=== PATIENT | male | born 1955 | race Caucasian/White ===

== ENCOUNTER 2016-09-04 05:12 | Inpatient (IN) | payer BC ==
[2016-08-22 11:33] VITALS: BMI 26.0
--- NOTE | 2016-08-22 12:08 | PAT Medication Instructions ---
Service Date Aug 22, 2016. Current Home Medication List Glyburide-Metformin (Glyburide/Metformin Hcl), 2 TAB PO BID Lisinopril (Zestril), 20 MG PO QAM Naproxen (Naprosyn), 500 MG PO BID PRN for PRN Medication Instructions For Your Scheduled Surgery - Check with surgeon for instructions: Naproxen (Naprosyn), 500 MG PO BID PRN for PRN - Hold the following medications 48 hours prior to surgery: Glyburide-Metformin (Glyburide/Metformin Hcl), 2 TAB PO BID - Hold the following medications the morning of surgery: Lisinopril (Zestril), 20 MG PO QAM If you have any questions please call us at [phone] (Eun Damon PA-C) or [phone] or [phone]
--- NOTE | 2016-08-22 13:07 | DIAGNOSTIC IMAGING REPORT ---
TWO VIEW CHEST CLINICAL HISTORY: Preoperative examination. FINDINGS: PA and lateral chest radiographs are obtained. No prior studies are available for comparison at the time of dictation. The cardiomediastinal silhouette is unremarkable. There is mild elevation of the right hemidiaphragm. The lungs and pleural spaces are clear. There is no pneumothorax. The bony thorax appears intact. IMPRESSION: No active disease in the chest. Electronically signed by: Geoffrey Dixon M.D. 08/22/2016 1:06 PM Dictated Date/Time: 08/22/2016 1:05 PM
[2016-08-22 13:15] LABS: BASO % 0.4 %; BASO ABS # 0.03 K/uL (0-0.2); COMPLETE YES; EOS % 1.5 %; HEMATOCRIT 42.5 % (42-52); IG% 0.5 %; LYMPH % 23.3 %; LYMPH ABS # 1.73 K/uL (1.2-3.4); MEAN CELL VOLUME 88.5 fL (80-100); MEAN CORPUSCULAR HEMOGLOBIN 31.7 pg (25-34); MEAN CORPUSCULAR HGB CONC 35.8 g/dl (32-36); MEAN PLATELET VOLUME 11.8 fL (7.4-10.4); MONO % 7.4 %; NEUT % 66.9 %; PLATELET COUNT 215 K/uL (130-400); WHITE BLOOD COUNT 7.43 K/uL (4.8-10.8)
[2016-08-22 13:27] LABS: URINE APPEARANCE CLEAR (CLEAR); URINE BILIRUBIN NEG (NEG); URINE COLOR YELLOW; URINE NITRITE NEG (NEG); URINE SPECIFIC GRAVITY 1.012 (1.000-1.030); UROBILINOGEN NEG (NEG)
[2016-08-22 13:36] LABS: MANUAL MICROSCOPIC REQUIRED? NO; REVIEW REQ? NO
[2016-08-22 13:37] LABS: BUN/CREATININE RATIO 16.8 (10-20); CALCIUM 9.9 mg/dl (8.5-10.1); CREATININE 1.2 mg/dl (0.60-1.40); POTASSIUM 5.1 mmol/L (3.5-5.1)
--- NOTE | 2016-08-31 14:38 | HISTORY & PHYSICAL EXAMINATION ---
DATE OF ADMISSION: 09/04/2016 HISTORY OF PRESENT ILLNESS: The patient presents to our office with a complaint of ongoing lower back pain. He has had a decline and worsening of symptoms in February 2016. His deer was in front of his home when he went to move it and as he was dragging it across the field he slipped and fell landing on his tail bone. He has noticed decline ever since. He has pain down both legs, right significantly worse than left since this point in time. The symptoms involve the buttock, lateral thigh, posterior calves. Activities such as twisting, sitting on a hard surface, leaning on a counter, walking, standing or looking upwards towards the ceiling exacerbate his pain. He is most comfortable lying flat. He does note his knees are buckling secondary to pain. He denies bowel or bladder dysfunction. He has trialed progressive care nurse with temporary relief. He has received an epidural injection by Dr. Cardona in April which provided short term relief. A second injection in May unfortunately did not provide relief. He has taken tramadol, Zanaflex and naproxen for pain control. PAST MEDICAL HISTORY: Significant for type 2 diabetes, hypertension, and hemochromatosis. PAST SURGICAL HISTORY: Significant for left and right cataract repair, right knee meniscectomy, umbilical hernia repair. ALLERGIES: INCLUDE CAT SCAN DYE CAUSES RASH. MEDICATIONS: Glyburide/metformin HCL 2.5/500 twice a day, lisinopril 20 mg a day, naproxen 500 mg twice a day, tramadol 50 mg t.i.d. p.r.n. and Zanaflex 4 mg t.i.d. p.r.n. SOCIAL HISTORY: He is . Occasionally uses alcohol. Tobacco, he denies. 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 FAMILY HISTORY: For arthritis, cardiovascular disease, cancer, diabetes, and hypertension. REVIEW OF SYSTEMS: Significant for weakness, weight loss, difficulty walking, hoarseness, muscle weakness, loss of appetite, constipation, anxiety, depression and insomnia. PHYSICAL EXAMINATION: GENERAL: He is 5 feet 8 inches and 175 pounds. HEENT: Speech appropriate. CARDIOPULMONARY: No gross abnormalities. ABDOMEN: Soft, nondistended. GENITOURINARY: Deferred. NEUROLOGIC: Cranial nerves II-XII grossly intact. MUSCULOSKELETAL: He ambulates with independent gait. Negative tension signs bilaterally. Strength is intact bilateral lower extremities. ASSESSMENT: Severe multilevel lumbar stenosis. PLAN: At this point in time, he has trialed conservative therapy. He may pursue surgical intervention. This would require lumbar decompression with instrumented fusion L3-4, L4-5. Risks, benefits, pros, cons, and alternatives were outlined in detail. The patient relates he would like to proceed with the above-mentioned surgical planning.
[~2016-09-04] VITALS: Ht 172.7 cm; Wt 78.2 kg
[2016-09-04] VITALS (9 sets, daily range): BP systolic 117–176; BP diastolic 66–92; PULSE 65–110; TEMP 36.5–37; O2SAT 96–100; BMI 26.0
[~2016-09-04 05:12] MED LIST: LISI-725 PO; NAPR-1169 PO; [UNRECOGNIZED DRUG - CODE] PO
[2016-09-04] MEDS ORDERED: LACTATED RINGER'S 1000ML 1,000 ML IV SCH (06:00)
[2016-09-04] MEDS ORDERED: CEFAZOLIN 1000MG/55 ML D5W IV SCH (06:00)
[2016-09-04] MEDS ORDERED: CEFAZOLIN 2000 MG/60 ML D5W IV SCH (06:00)
[2016-09-04] MEDS ORDERED: MIDAZOLAM HCL 1 MG/ML 2ML VIAL ONE (06:39)
[2016-09-04] MEDS ORDERED: FENTANYL CITRATE INJ 50 MCG/1 ML 2 ML VIAL ONE ×3 (06:39→08:43)
[2016-09-04] MEDS ORDERED: SODIUM CHLORIDE 0.9% PF 50 ML VIAL ONE (06:59)
[2016-09-04] MEDS ORDERED: BACITRACIN 50000 UNIT VIAL ONE (06:59)
[2016-09-04] MEDS ORDERED: BUPIVACAINE/EPINEPHRINE 0.5% MPF 1:200,000 30 ML VIAL ONE (06:59)
[2016-09-04] MEDS ORDERED: LACTATED RINGER'S 1000ML 1,000 ML IV PRN (07:03)
[2016-09-04] MEDS ORDERED: MoRPHine SULFATE 10 MG/ML CARP/VIAL IV PRN (07:15)
[2016-09-04] MEDS ORDERED: FENTANYL CITRATE INJ 50 MCG/1 ML 2 ML VIAL IV PRN (07:15)
[2016-09-04] MEDS ORDERED: ONDANSETRON INJ 2 MG/ML 2 ML VIAL IV PRN ×2 (07:15→09:45)
--- NOTE | 2016-09-04 07:26 | History & Physical Bridge Note ---
H&P Re-Evaluation Bridge Note: I have examined the patient, reviewed the History & Physical and in the interval since the performance of the History & Physical I have noted the following changes of clinical significance: No changes noted
[2016-09-04] MEDS ORDERED: NURSING VERBAL MED ORDER ONE (07:45)
[2016-09-04] MEDS ORDERED: HYDROmorphone INJ 2 MG/ML SYR/VIAL ONE ×2 (07:52→09:32)
[2016-09-04] MEDS ORDERED: SODIUM CHLORIDE 0.9% 1000ML 1,000 ML IV SCH (09:33)
--- NOTE | 2016-09-04 09:33 | [facility] Post Operative Brief Note ---
Immediate Operative Summary Operative Date Sep 04, 2016. Pre-Operative Diagnosis Severe multilevel lumbar stenosis Post-Operative Diagnosis Severe multilevel lumbar stenosis Procedure(s) Performed L3-L4, L4-L5 Lumbar Decompression/Laminectomy, Discectomy, Placement of Interbody Spacer L3-L4, L4-L5, Pedicle Screw Fixation, Application of Tonya, Application of Bone Morphogenetic Protein, and Posteriolateral Gutter Fusion Surgeon Dr. Shah Logging Crew Foreman Surgeon(s) Archana Simon PA-C Estimated Blood Loss 250mL Findings stenosis/spondy Specimens None per surgeon
[2016-09-04] MEDS ORDERED: PROPOFOL IV EMULSION 10 MG/ML 20 ML VIAL IV ONE (09:34)
[2016-09-04] MEDS ORDERED: ROCURONIUM BROMIDE 10 MG/ML 5 ML VIAL ONE (09:34)
[2016-09-04] MEDS ORDERED: ONDANSETRON INJ 2 MG/ML 2 ML VIAL ONE (09:34)
[2016-09-04] MEDS ORDERED: GLYCOPYRROLATE INJ 0.2 MG/ML VIAL ONE (09:34)
[2016-09-04] MEDS ORDERED: EpHEDrine SULFATE 50MG/5ML SYR ONE (09:34)
[2016-09-04] MEDS ORDERED: NEOSTIGMINE METHYLSULFATE 1 MG/ML 10ML VIAL ONE (09:34)
[2016-09-04] MEDS ORDERED: DEXAMETHASONE SOD INJ 4 MG/ML VIAL ONE (09:34)
[2016-09-04] MEDS ORDERED: PHENYLEPHRINE 100MCG/ML 5ML SYR ONE (09:34)
[2016-09-04] MEDS ORDERED: LIDOCAINE HCL 2% 2 ML VIAL (20MG/ML) ONE (09:34)
[2016-09-04] MEDS ORDERED: FLOSEAL HEMOSTATIC MATRIX 10ML TOP ONE (09:35)
--- NOTE | 2016-09-04 09:37 | DIAGNOSTIC IMAGING REPORT ---
INTRAOPERATIVE RADIOGRAPHS CLINICAL HISTORY: L3-L5 spinal fusion. Fluoroscopy time: 16 seconds. FINDINGS: 2 spot fluoroscopic views of the lumbar spine are presented. There is evidence of discectomy at L3-L4 and L4-L5 with laminectomy and posterior fusion from L3-L5 . Interpedicular screws are present at all levels. The orthopedic hardware appears intact. IMPRESSION: Intraoperative images from L3-L5 spinal fusion as above. Electronically signed by: Geoffrey Dixon M.D. 09/04/2016 9:35 AM Dictated Date/Time: 09/04/2016 9:34 AM
[2016-09-04] MEDS ORDERED: BISACODYL 10 MG SUPP PR PRN (09:45)
[2016-09-04] MEDS ORDERED: ACETAMINOPHEN IV 100 ML IV PRN (09:45)
[2016-09-04] MEDS ORDERED: NALOXONE HCL 0.4 MG/1 ML VIAL/CARP IV PRN ×2 (09:45)
[2016-09-04] MEDS ORDERED: hydrOXYzine HCL 25 MG TAB PO PRN (09:45)
[2016-09-04] MEDS ORDERED: ACETAMINOPHEN 500 MG TAB PO PRN (09:45)
[2016-09-04] MEDS ORDERED: ALUMINUM/MAGNESIUM SUSP 30 ML UDC PO PRN (09:45)
[2016-09-04] MEDS ORDERED: METOCLOPRAMIDE HCL INJ 5 MG/ML 2 ML VIAL IV PRN (09:45)
[2016-09-04] MEDS ORDERED: DO NOT ADMINISTER PNEUMOCOCCAL VACCINE PRN ×2 (09:45)
[2016-09-04] MEDS ORDERED: SOD PHOSPHATE/SOD BIPHOSPHATE ENEMA 132 ML BTL PR PRN (09:45)
[2016-09-04] MEDS ORDERED: FAMOTIDINE 20 MG TAB PO PRN (09:45)
[2016-09-04] MEDS ORDERED: DO NOT ADMINISTER FLU VACCINE PRN ×3 (09:45)
[2016-09-04] MEDS ORDERED: MAGNESIUM HYDROXIDE SUSP 30 ML UDC PO PRN (09:45)
[2016-09-04] MEDS ORDERED: LORAZEPAM INJ 0.5 MG in SYRINGE 0 ML IV PRN (09:45)
[2016-09-04] MEDS ORDERED: PROMETHAZINE HCL INJ 12.5 MG in SODIUM CHLORIDE 0.9% 50ML 50 ML IV PRN (09:45)
[2016-09-04] MEDS ORDERED: HYDROmorphone HCL 0.5MG/ML 50 ML CASSETTE ONE (09:50)
[2016-09-04] MEDS ORDERED: KETOROLAC TROMETHAMINE 30 MG/ML VIAL ONE (09:51)
[2016-09-04] MEDS ORDERED: PHARMACY GLYCEMIC MGMT CONSULT SCH (09:53)
[2016-09-04] MEDS ORDERED: DEXTROSE 50% 50 ML SYR IV PRN (10:15)
[2016-09-04] MEDS ORDERED: GLUCOSE 10 TABS/TUBE PO PRN (10:15)
[2016-09-04] MEDS ORDERED: GLUCAGON FOR INJ 1 MG VIAL SQ PRN (10:15)
[2016-09-04] MEDS ORDERED: GLUCOSE 40% GEL 15 GM TUBE PO PRN (10:15)
--- NOTE | 2016-09-04 10:34 | OPERATIVE REPORT ---
DATE OF OPERATION: 09/04/2016 PREOPERATIVE DIAGNOSES: Spinal stenosis, spondylolisthesis. POSTOPERATIVE DIAGNOSES: Same. PROCEDURES PERFORMED: 1. Lumbar decompression and medial facetectomy and foraminotomy L2-3, L3-4, L4-5. 2. Posterior spinal fusion L3-4, L4-5. 3. Placement of posterior segmental instrumentation using Orthros rods and screws, L3-4, L4-5. 4. Interbody fusion L3-4, L4-5. 5. Placement of PEEK cage 11 x 26 at L3-4 and 12 x 26 at L4-5. 6. Placement of locally harvested morcellized autograft in posterior gutters. 7. Placement of Infuse collagen sponge combined with Mastergraft in posterior gutters and Tonya bone graft in the interbody space. SURGEON: Dr. Sam Shah. EMPLOYEE TRAINING SPECIALIST: Archana Simon PA-C. Due to the complex nature of the procedure, the entire surgery was performed with the patient care nursing assistant of BOBBY Sesay. The dermatology physician assistant, under direct supervision, was involved in the actual performance of all aspects of the surgical procedure including hemostasis, tissue retraction and incision, instrument management, patient positioning, and wound closure. ANESTHESIA: General. DISPOSITION: The patient awakened and taken to PACU in stable condition. HISTORY OF PATIENT'S PROBLEMS: This is a 60-year-old male who presents with above-mentioned diagnosis after failing an extensive course of nonoperative care, elected to undergo the above-mentioned procedure. Risks, benefits, pros, cons, and alternatives were outlined in detail preoperatively. DESCRIPTION OF PROCEDURE: The patient was met with preoperatively, case discussed and all questions were addressed. At that point, the patient was taken back to the operative suite and after undergoing successful general intubation by the department of anesthesia was placed in prone position on Stephane table atop Daniel frame. All bony prominences were well padded and the eyes were inspected to ensure there was no external pressure placed upon them. At this point, lumbar spine was prepped and draped in normal sterile fashion. Sharp dissection with the assistance of Bovie cautery was performed down to and exposing the lamina and transverse processes of L3, L4, L5 bilaterally. From a caudal to cephalad fashion, complete laminectomy of L4, L3, and partial laminectomy of L2 was performed addressing severe lateral recess and foraminal stenosis. Pedicle screws then placed in L3, L4, L5 bilaterally with the assistance of fluoroscopy and appropriate size madhu provisionally placed. Through a transforaminal approach on the right, a complete discectomy of L4-5 was performed, endplates curetted to subcortical bleeding bone and a 12 x 26 mm PEEK cage filled with Tonya bone grafting tapped into position. I then proceeded to L3-4 and again through a transforaminal approach on the right, a complete discectomy performed, endplates to subcortical bleeding bone and an 11 x 26 mm PEEK cage filled with Tonya bone grafting tapped into position. The rods were then compressed, locked into final position bilaterally and transverse processes of L3, L4, and L5 burred to subcortical bleeding bone. Infuse collagen sponge combined with Mastergraft locally harvested morcellized autograft was placed in the posterior gutters. A 7 flat JACK drain was inserted. Incision was closed with #1 Vicryl in the fascia, 2-0 Vicryl subcutaneously, 4-0 Monocryl for final skin closure. Steri-Strips and sterile dressing placed. The patient was awakened and taken to PACU in stable condition. I attest to the content of the Intraoperative Record and any orders documented therein. Any exceptio ns are noted below.
--- NOTE | 2016-09-04 10:46 | Anesthesiology Progress Note ---
Anesthesia Post Op Note Date & Time Sep 04, 2016 at 10:45 Vital Signs Pain Intensity: 0 Vital Signs Past 12 Hours Date Time Temp Pulse Resp B/P Pulse Ox O2 Delivery O2 Flow Rate FiO2 09/04/16 10:35 36.0 60 16 132/69 100 Nasal Cannula 10 09/04/16 10:25 90 15 147/81 100 Nasal Cannula 10 09/04/16 10:15 94 24 139/85 100 Nasal Cannula 4 09/04/16 10:05 84 15 144/73 100 Mask 10 09/04/16 09:55 89 11 155/76 100 Mask 10 09/04/16 09:48 36.0 96 12 148/78 100 Mask 10 09/04/16 05:42 36.5 65 18 176/92 100 Room Air Notes Mental Status: alert / awake / arousable, participated in evaluation Pt Amnestic to Procedure: Yes Nausea / Vomiting: adequately controlled Pain: adequately controlled Airway Patency, RR, SpO2: stable & adequate BP & HR: stable & adequate Hydration State: stable & adequate Anesthetic Complications: no major complications apparent Pt doing well.
[2016-09-04] MEDS: INSULIN ASPART 100 UNITS/ML 3 ML PEN SC SCH ×4 (11:00→21:27)
[2016-09-04] MEDS: LACTATED RINGER'S 1000ML 1,000 ML IV SCH ×3 (11:56→23:29)
[2016-09-04] MEDS: HYDROmorphone HCL 0.5MG/ML 50 ML CASSETTE IV PRN ×2 (14:52→23:07)
--- NOTE | 2016-09-04 15:16 | Pharmacy Progress Note ---
Glycemic Control Intl Consult Date of Service Sep 04, 2016. Scope Glycemic Pharmacist consulted by Dr Shah on 09/04/16 for glycemic control and to write orders per [facility] inpatient glycemic control protocol Objective Weight (Kilograms): 78.200 Accuchecks BSG (last 24hrs): Test 09/04/16 05:51 09/04/16 09:59 09/04/16 11:41 Bedside Glucose 186 mg/dl (70-99) 208 mg/dl (70-99) 208 mg/dl (70-99) HbA1c 09/05/16 pending Recent Pertinent Medications Outpatient Anti-diabetic Regimen: * Glipizide 2.5 mg/metformin 500 mg 2 tabs bid per med rec, 1 tab bid per H&P * A1c = pending 09/05/16 The patient is currently receiving: * Basal insulin: none * Correctional Insulin: none Prandial insulin: none * Oral Agents: none Risk Factors for Insulin Resistance: * Steroids: dexamethasone 12 mg in OR, then 6 mg q8h x 3 doses * Infection: no, on cefazolin perioperatively * Pressors: no * IVF: LR@ 150 ml/hr * Recent Surgery: OR today-spinal surgery * Diet: npo advancing to type 2 diabetic Assessment & Plan ASSESSMENT: * ADA & AACE recommend a goal blood sugar range 140-180 mg/dl for the majority of critically ill & non-critically ill patients. However, more stringent targets may be selected in individual cases. Will use goal range 110-140, since patient is not in ICU,not critically ill. * 60 yo type 2 diabetic. Degree of glycemic control unknown- A1c ordered for tomorrow. BSG's expected to rise due to stress of surgery and steroids given. Hyperglycemic effect of dexamethasone (especially postprandial) may persist for 48-72 hr. Will start a conservative weight-based correction factor and carb ratio, and reassess in am. PLAN FOR INPATIENT GLYCEMIC CONTROL: * Holding outpatient oral diabetes medications * No basal insulin at this time * Correctional Insulin with NOVOLOG per scale ACHS or Q6hrs while NPO * Goal Range: Low 110 mg/dL - High 140 mg/dL * Correction Factor: 40 mg/dL/unit * Nutritional / Prandial insulin per carb ratio of 1 unit per 15 grams CHO consumed * Please note that the plan above was derived based on current level of insulin resistance and hospital stress. These recommendations are appropriate for inpatient admission only. Plan of care upon discharge will need to be reassessed to avoid potential outpatient hypo/hyperglycemia. Thank you.
[2016-09-04] MEDS: DEXAMETHASONE INJ 6 MG in SYRINGE 0 ML IV SCH ×2 (15:51→23:29)
[2016-09-04] MEDS: CEFAZOLIN IV 2,000 MG in DEXTROSE 5% 50ML 50 ML IV SCH ×2 (15:51→23:31)
[2016-09-04] MEDS: DOCUSATE SODIUM/SENNA 50/8.6MG TAB PO SCH (21:11)
[2016-09-04] MEDS ORDERED: LANTUS PER UNIT CHARGE SQ SCH (21:30)
[2016-09-05] MEDS: INSULIN ASPART 100 UNITS/ML 3 ML PEN SC SCH ×6 (00:19→21:05)
[2016-09-05] MEDS: LORAZEPAM 0.5 MG TAB PO PRN ×3 (02:47→21:11)
[2016-09-05 03:00] VITALS: BP 157/83; PULSE 87; TEMP 36.6; O2SAT 95
[2016-09-05 03:50] VITALS: O2SAT 97
[2016-09-05] MEDS ORDERED: HYDROmorphone INJ 0.5 MG/0.5 ML SYR IV PRN (06:00)
[2016-09-05] MEDS ORDERED: DC PCA SCH (06:00)
[2016-09-05] MEDS ORDERED: NURSING VERBAL MED ORDER ONE (06:30)
[2016-09-05 06:31] LABS: COMPLETE YES; HEMATOCRIT 34.7 % (42-52); IG% 0.4 %; LYMPH ABS # 0.67 K/uL (1.2-3.4); MEAN CELL VOLUME 87.2 fL (80-100); MEAN CORPUSCULAR HEMOGLOBIN 31.7 pg (25-34); MEAN CORPUSCULAR HGB CONC 36.3 g/dl (32-36); MONO % 3.9 %; NEUT % 90.7 %; PLATELET COUNT 222 K/uL (130-400); RED BLOOD COUNT 3.98 M/uL (4.7-6.1); WHITE BLOOD COUNT 13.47 K/uL (4.8-10.8)
[2016-09-05 07:07] LABS: BUN/CREATININE RATIO 16.2 (10-20); CREATININE 1.4 mg/dl (0.60-1.40); POTASSIUM 4.5 mmol/L (3.5-5.1)
[2016-09-05 07:39] VITALS: BP 152/84; PULSE 93; TEMP 36.7; O2SAT 96
[2016-09-05] MEDS: DEXAMETHASONE INJ 6 MG in SYRINGE 0 ML IV SCH (07:48)
[2016-09-05] MEDS: OXYCODONE HCL IR 5 MG TAB (IMMEDIATE RELEASE) PO PRN ×4 (07:48→23:27)
--- NOTE | 2016-09-05 07:51 | Anesthesiology Progress Note ---
Anesthesia Post Op Note Date & Time Sep 05, 2016 at 07:50 Vital Signs Pain Intensity: 8.0 Vital Signs Past 12 Hours Date Time Temp Pulse Resp B/P Pulse Ox O2 Delivery O2 Flow Rate FiO2 09/05/16 07:39 36.7 93 16 152/84 96 Room Air 09/05/16 03:50 97 Room Air 09/05/16 03:00 36.6 87 18 157/83 95 Room Air 09/04/16 23:30 Room Air 09/04/16 23:05 36.7 89 16 154/69 96 Room Air Notes Mental Status: alert / awake / arousable, participated in evaluation Pt Amnestic to Procedure: Yes Nausea / Vomiting: adequately controlled Pain: adequately controlled Airway Patency, RR, SpO2: stable & adequate BP & HR: stable & adequate Hydration State: stable & adequate Anesthetic Complications: no major complications apparent
[2016-09-05 08:06] LABS: ESTIMATED AVERAGE GLUCOSE 174 mg/dl; HA1C FLAG Normal (Normal)
[2016-09-05] MEDS: LISINOPRIL 20 MG TAB PO SCH (08:30)
[2016-09-05] MEDS ORDERED: LANTUS PER UNIT CHARGE SQ SCH ×2 (09:00→21:00)
[2016-09-05] MEDS ORDERED: KETOROLAC TROMETHAMINE 30 MG/ML VIAL IV PRN (11:30)
[2016-09-05 11:31] VITALS: BP 134/79; PULSE 65; TEMP 36.8; O2SAT 99
[2016-09-05] MEDS ORDERED: RXC5 PO (11:31)
--- NOTE | 2016-09-05 11:31 | Discharge Instructions ---
Discharge Instructions Date of Service Sep 05, 2016. Admission Reason for Admission: Lumbar Spinal Stenosis Discharge Discharge Diagnosis / Problem: stenosis Discharge Goals Goal(s): Improve function Activity Recommendations Activity Limitations: per Instructions/Follow-up section . Instructions / Follow-Up Instructions / Follow-Up ACTIVITY RECOMMENDATIONS: SELF CARE INSTRUCTIONS AFTER THORACIC/LUMBAR FUSIONS 1. You may walk to your tolerance. It is good exercise for your legs and back. Expect some back and intermittent leg aches and pains. 2. You may perform "counter-top" level activities (make a sandwich, gian with a project, etc.). 3. No bending or lifting of more than 10 pounds or back twisting of any nature (roll like a log when turning in bed). 4. You may ride in a car for 20-30 minutes at a time. No driving until after your first visit with your doctor. 5. Frequent changes of position and restricting sitting to 30 minutes at a time will help limit the amount of back spasms and stiffness you may experience. 6. You may discontinue the use of ambulatory aids (cane, crutches, etc.) once your strength and confidence allow. 7. You may twister in the shower and let water strike your incision when you arrive home at least once daily. Do not take a tub bath, sit in a hot tub or go into a swimming pool until after your first recheck in the office. SPECIAL CARE INSTRUCTIONS: VERY IMPORTANT TO READ AND REVIEW A. Your surgical incision has been closed with a cosmetic suture under the skin that will dissolve in about 6 weeks. In 14 days, you can use a pair of clean scissors and cut the suture that is left outside of the skin at the ends of your incision. 1. The small skin tapes can be removed 7 days after surgery if they have not fallen off by that point. 2. You may keep the wound open to air as much as possible to promote healing after post-op day number 5 unless told otherwise by your doctor. 3. If you think the wound looks like it is becoming infected (redness or worsening drainage) and/or you are experiencing fever, chill or worsening back pain and muscle spasms, contact the office so that we may evaluate you as soon as possible. B. Complications are uncommon, but please contact us if you have any signs or symptoms of: 1. wound infection (fever higher than 102.5 degrees F, redness, separation of wound, drainage, or increasing pain from the incision) 2. blood clots in legs (pain, swelling, redness and warmth in legs) 3. urinary tract infection (fever higher than 102.5 degrees F, burning upon urination or increased frequency of urination) 4. nerve problems (inability to walk on your toes or heels, numbness, loss of bowel or bladder control) 5. any other symptoms that concern you C. Please call the office at if you have any concerns or questions about your operation or recovery. D. No smoking! Smoking drastically decreases the chance of a solid fusion. E. Do not take any anti-inflammatory medications (Indocin, Advil, Motrin, Aspirin, Naprosyn, etc.) as these may inhibit the chance of a solid fusion. Tylenol is okay to take for pain. MANAGING PAIN AFTER SPINAL SURGERY 1. Narcotic medication is intended for short-term use and will be provided for surgical pain. Surgical pain usually lasts for a period of 4-6 weeks. Narcotic medication includes Percocet, Vicodin, Darvocet, Tylenol #3 or Lortab. 2. Longer-term pain is more appropriately treated with non-narcotic medication such as Tylenol ES. 3. Muscle spasm is not appropriately treated with narcotics. Muscle relaxers such as Soma, Flexeril or Skelaxin can be used along with Tylenol ES. 4. Remember that we all live with some "aches and pains". This is not unusual or uncommon after an injury or as we get older. a. Back pain is expected and may include muscle spasms for 4 to 6 weeks after surgery. The pain should gradually improve. If the pain worsens for no apparent reason, please contact the office. b. Intermittent leg pain may also be experienced and should not be concerned about unless it worsens for no apparent reason. If so, please contact the office. 5. We will provide appropriate medication within the normal guidelines of their prescribed use. We will also be very cautious and aware of potential abuse and extended duration of patients' medication needs. a. Pain medications are for your comfort and to assist with sleep and rest so that the tissue can heal. They are not provided in order to return to normal activity and should not be used through the day. To do so or worsening pain at night can result from ongoing tissue damage and development of tolerance to the prescribed medicine. 6. Please allow 2-3 days to process refills. Prescriptions will not be mailed but must be picked up at the office. FOLLOW UP VISIT: Keep your scheduled follow-up appointment. Any questions, please call the office at . Current Hospital Diet Patient's current hospital diet: Diabetes Type 2 Diet Discharge Diet Recommended Diet: Regular Diet Procedures Procedures Performed: L3-L4, L4-L5 Lumbar Decompression/Laminectomy, Discectomy, Placement of Interbody Spacer L3-L4, L4-L5, Pedicle Screw Fixation, Application of Tonya, Application of Bone Morphogenetic Protein, and Posteriolateral Gutter Fusion Pending Studies Studies pending at discharge: no Laboratory Results Hemoglobin A1c Test 09/05/16 06:17 Range/Units Estimated Average Glucose 174 mg/dl Hemoglobin A1c 7.7 H 4.5-5.6 % Medical Emergencies . Who to Call and When: Medical Emergencies: If at any time you feel your situation is an emergency, please call 911 immediately. . Non-Emergent Contact Non-Emergency issues call your: Primary Care Provider . "Provider Documentation" section prepared by Sam Shah. VTE Core Measure Inpt VTE Proph given/why not?: Carolyn Keys, SCD's
[2016-09-05 11:47] VITALS: Ht 172.7 cm; Wt 78.2 kg
--- NOTE | 2016-09-05 13:02 | Pharmacy Progress Note ---
Glycemic Control: Progress Nt Date of Service Sep 05, 2016. Scope Glycemic Pharmacist consulted by Dr Shah on 09/04/16 for glycemic control and to write orders per [facility] inpatient glycemic control protocol. Objective Accuchecks BSG (last 24hrs): Test 09/04/16 16:50 09/04/16 20:51 09/04/16 23:38 09/05/16 03:44 Bedside Glucose 271 mg/dl (70-99) 292 mg/dl (70-99) 287 mg/dl (70-99) 233 mg/dl (70-99) Test 09/05/16 06:17 09/05/16 07:32 09/05/16 12:07 Random Glucose 233 mg/dl (70-99) Bedside Glucose 227 mg/dl (70-99) 304 mg/dl (70-99) Laboratory Data (last 24hrs) Test 09/05/16 06:17 Anion Gap 9.0 mmol/L BUN/Creatinine Ratio 16.2 Blood Urea Nitrogen 23 mg/dl Creatinine 1.40 mg/dl Hemoglobin A1c 7.7 % Potassium Level 4.5 mmol/L Sodium Level 138 mmol/L White Blood Count 13.47 K/uL Red Blood Count 3.98 M/uL Hemoglobin 12.6 g/dL Hematocrit 34.7 % Mean Corpuscular Volume 87.2 fL Mean Corpuscular Hemoglobin 31.7 pg Mean Corpuscular Hemoglobin Concent 36.3 g/dl Platelet Count 222 K/uL Mean Platelet Volume 11.0 fL Neutrophils (%) (Auto) 90.7 % Lymphocytes (%) (Auto) 5.0 % Monocytes (%) (Auto) 3.9 % Eosinophils (%) (Auto) 0.0 % Basophils (%) (Auto) 0.0 % Neutrophils # (Auto) 12.22 K/uL Lymphocytes # (Auto) 0.67 K/uL Monocytes # (Auto) 0.53 K/uL Eosinophils # (Auto) 0.00 K/uL Basophils # (Auto) 0.00 K/uL HbA1c: Test 09/05/16 06:17 Hemoglobin A1c 7.7 % (4.5-5.6) H Recent Pertinent Medications Outpatient Anti-diabetic Regimen: * Glipizide 2.5 mg/metformin 500 mg 2 tabs bid per patient * A1c = 7.7% 3/14/17 The patient is currently receiving: * Basal insulin: Lantus 10 units x 2 doses * Correctional Insulin: Novolog ACHS goal range 110-140 mg/dl correction factor 30 mg/dl/unit Prandial insulin: Per carb ratio of 1 unit per 10 Gm CHO consumed * Oral Agents: none Risk Factors for Insulin Resistance: * Steroids: dexamethasone 12 mg in OR, then 6 mg q8h x 3 doses, last dose given 09/05 @0748 * Infection: no, on cefazolin perioperatively * IVF: LR@ 150 ml/hr, now dc'd * Recent Surgery: POD#1-spinal surgery * Diet: type 2 diabetic, fairly good appetite Assessment & Plan ASSESSMENT: * ADA & AACE recommend a goal blood sugar range 140-180 mg/dl for the majority of critically ill & non-critically ill patients. However, more stringent targets may be selected in individual cases. Will use goal range 110-140, since patient is not in ICU,not critically ill. 09/04/16 * 60 yo type 2 diabetic. Degree of glycemic control unknown- A1c ordered for tomorrow. BSG's expected to rise due to stress of surgery and steroids given. Hyperglycemic effect of dexamethasone (especially postprandial) may persist for 48-72 hr. Will start a conservative weight-based correction factor and carb ratio, and reassess in am. 09/05/16 * Patient's A1c today was 7.7%, indicating fairly good glycemic control past 3 months. Patient used 31 units of insulin on 09/04. BSG's ranged from 227-304. Last dose of steroid was this am-will expect hyperglycemic effect to last 48-72 hr. Will tighten carb ratio and add overnight BSG check. Will reassess in am. PLAN FOR INPATIENT GLYCEMIC CONTROL: * Holding outpatient oral diabetes medications * Basal insulin with Lantus per protocol: hold dose if BSG is less than 140, give 5 units if greater than 140 * Correctional Insulin with NOVOLOG per scale ACHS or Q6hrs while NPO, add 0200 BSG check * Goal Range: Low 110 mg/dL - High 140 mg/dL * Correction Factor: 30 mg/dL/unit * Nutritional / Prandial insulin per carb ratio of 1 unit per 8 grams CHO consumed * Please note that the plan above was derived based on current level of insulin resistance and hospital stress. These recommendations are appropriate for inpatient admission only. Plan of care upon discharge will need to be reassessed to avoid potential outpatient hypo/hyperglycemia. Thank you.
[2016-09-05 15:12] VITALS: BP 128/66; PULSE 66; TEMP 36.6; O2SAT 96
[2016-09-05] MEDS: DOCUSATE SODIUM/SENNA 50/8.6MG TAB PO SCH (21:06)
[2016-09-05 23:08] VITALS: BP 125/76; PULSE 63; TEMP 36.5; O2SAT 97
[2016-09-06] MEDS ORDERED: INSULIN ASPART 100 UNITS/ML 3 ML PEN SC SCH (02:00)
[2016-09-06] MEDS: POLYETHYLENE (MIRALAX) 17 GM PACK PO SCH ×4 (05:38→23:49)
[2016-09-06 06:36] VITALS: BP 122/71; PULSE 57; TEMP 36.8; O2SAT 97
[2016-09-06] MEDS: OXYCODONE HCL IR 5 MG TAB (IMMEDIATE RELEASE) PO PRN ×3 (07:30→19:09)
[2016-09-06 07:58] VITALS: BP 126/78; PULSE 63; TEMP 36.6; O2SAT 95
[2016-09-06 08:05] VITALS: O2SAT 95
[2016-09-06] MEDS: LISINOPRIL 20 MG TAB PO SCH (09:11)
[2016-09-06] MEDS: INSULIN ASPART 100 UNITS/ML 3 ML PEN SC SCH ×5 (09:13→23:54)
--- NOTE | 2016-09-06 10:57 | PROGRESS NOTE ---
DATE: 09/05/2016 Back pain well controlled. Leg pain improved. Vital signs stable. T-max 36.8. JACK drained 190. Hematocrit 34.7. PHYSICAL EXAMINATION: The patient is in chair at bedside. Has good strength to testing. Appears comfortable. ASSESSMENT: Status post lumbar decompression and fusion. PLAN: At this time, we will initiate physical therapy, advance his bowel regimen, anticipate home in the next few days.
--- NOTE | 2016-09-06 11:00 | PROGRESS NOTE ---
DATE: 09/06/2016 Postop day #2. Back pain is controlled. Leg pain improved. Vital signs stable. JACK drained 35 mL. PHYSICAL EXAMINATION: The patient is sitting by the bed, has good strength to testing, has been doing well with therapy. ASSESSMENT: Status post multilevel lumbar decompression and fusion. PLAN: At this time, we will maintain the JACK drain another 24 hours and anticipate discharge home tomorrow.
[2016-09-06 11:33] VITALS: BP 134/80; PULSE 64; TEMP 36.8; O2SAT 98
--- NOTE | 2016-09-06 13:52 | Pharmacy Progress Note ---
Glycemic: Assessment & Plan Date of Service Sep 06, 2016. Assessment & Plan The patient received 31 units of insulin on 09/04, 59 units on 09/05. BSGs ranging 237 - 384 mg/dl over the past 24hrs. Last dose of dexamethasone 09/05 @0748. BSG's spiked yesterday evening following supper (as expected) and have been trending steadily down as steroid effect wears off. Will give another single dose of Lantus, and add an overnight BSG check, and reassess in am. * Basal insulin: Lantus 5 units x 1 dose this afternoon * Correctional Insulin: Novolog Correction per scale ACHS, extra BSG check at 0200 Goal Range: Low 110 mg/dL - High 140 mg/dL Correction Factor: 30 mg/dL/unit * Prandial insulin: Per carb ratio of 1 unit per 8 grams CHO consumed BSGs continue to improve, no other changes needed to inpatient regimen at this time. Pharmacy will continue to monitor patient daily and write orders per [facility] inpatient glycemic control protocol. Thanks. * Please note that the plan above was derived based on current level of insulin resistance and hospital stress. These recommendations are appropriate for inpatient admission only. Plan of care upon discharge will need to be reassessed to avoid potential outpatient hypo/hyperglycemia.
[2016-09-06] MEDS ORDERED: LANTUS PER UNIT CHARGE SQ SCH (14:00)
[2016-09-06 15:11] VITALS: BP 114/70; PULSE 63; TEMP 36.8; O2SAT 97
[2016-09-06] MEDS ORDERED: LANTUS PER UNIT CHARGE SQ ONE (20:45)
[2016-09-06] MEDS: DOCUSATE SODIUM/SENNA 50/8.6MG TAB PO SCH (20:52)
[2016-09-06 23:48] VITALS: BP 158/72; PULSE 66; TEMP 36.8; O2SAT 98
[2016-09-07] MEDS: INSULIN ASPART 100 UNITS/ML 3 ML PEN SC SCH ×2 (04:02→07:34)
[2016-09-07] MEDS ORDERED: NURSING DECISION MEDICATION ORDER SCH (06:30)
[2016-09-07 06:38] VITALS: BP 130/74; PULSE 67; TEMP 36.8; O2SAT 93
[2016-09-07] MEDS: OXYCODONE HCL IR 5 MG TAB (IMMEDIATE RELEASE) PO PRN (07:09)
[2016-09-07] MEDS: LISINOPRIL 20 MG TAB PO SCH (08:37)
[2016-09-07 08:43] VITALS: BP 130/74; PULSE 67; TEMP 36.8; O2SAT 93
--- NOTE | 2016-09-07 08:43 | DISCHARGE SUMMARY ---
DATE OF DISCHARGE: 09/07/2016 PRINCIPAL DIAGNOSIS: Spinal stenosis. HOSPITAL COURSE: On 09/04/2016, the patient underwent lumbar decompression and fusion, tolerated this well and taken to the orthopedic floor postoperatively. Postop day #1, he was up and ambulatory, progressed to postop day #2. On postop day #3, bowels working well. JACK drain decreased appropriately. He subsequently discharged to home. Discharge orders and instructions found on the chart for further review.
== END 2016-09-07 10:03 | disposition home or self-care (01) | DRG 460 ==
LOC: ENRESERVDT → ENRESERVTM → C.ACU 05:12 → C.3E 09:36
PROVIDERS: ADMIT Orthopaedic Surgery Orthopaedic Surgery of the Spine; ATTEND Orthopaedic Surgery Orthopaedic Surgery of the Spine
PROC: 0ST20ZZ Resection of Lumbar Vertebral Disc, Open Approach (ICD-10-PCS; principal; 2016-09-04 07:45)
PROC: 01NB0ZZ Release Lumbar Nerve, Open Approach (ICD-10-PCS; principal; 2016-09-04 07:45)
PROC: 0SG1071 Fusion of 2 or more Lumbar Vertebral Joints with Autologous Tissue Substitute, Posterior Approach, Posterior Column, Open Approach (ICD-10-PCS; principal; 2016-09-04 07:45)
PROC: 3E0U0GB Introduction of Recombinant Bone Morphogenetic Protein into Joints, Open Approach (ICD-10-PCS; principal; 2016-09-04 07:45)
PROC: 0SG10AJ Fusion of 2 or more Lumbar Vertebral Joints with Interbody Fusion Device, Posterior Approach, Anterior Column, Open Approach (ICD-10-PCS; principal; 2016-09-04 07:45)
DX: M48.06 Spinal stenosis, lumbar region (principal); M43.16 Spondylolisthesis, lumbar region; E11.9 Type 2 diabetes mellitus without complications; I10 Essential (primary) hypertension; E83.119 Hemochromatosis, unspecified; M19.90 Unspecified osteoarthritis, unspecified site; Z79.1 Long term (current) use of non-steroidal anti-inflammatories (NSAID); Z79.84 Long term (current) use of oral hypoglycemic drugs; Z79.899 Other long term (current) drug therapy; Z79.891 Long term (current) use of opiate analgesic